=== PATIENT | male | born 1970 | race Caucasian/White ===

== ENCOUNTER → 2024-12-20 16:41 | Outpatient (REF) | payer OTHER, SELFPAY | LOC: RAD 16:41 | PROVIDERS: FAMILY PHYSICIAN Family Medicine | DX: M79.18 Myalgia, other site (principal) | CPT/HCPCS: 72050; 72072 ==

== ENCOUNTER → 2025-01-29 11:07 | Outpatient (REF) | payer OTHER, SELFPAY | LOC: DHSLP 11:07 | DX: G47.19 Other hypersomnia (principal); R06.83 Snoring | CPT/HCPCS: 95800 ==